=== PATIENT | male | born 1950 | race Caucasian/White ===

== ENCOUNTER 2018-06-28 08:07 | Observation (INO) ==
[~2018-06-28 08:07] MED LIST: CEFAZOLIN 2000MG 2,000 MG/15 ML SYR IV SCH; LR 15ML/HR IV SCH
[2018-06-28] MEDS ORDERED: fentaNYL citrate 100 MCG/2 ML VIAL ONE (11:01)
[2018-06-28] MEDS ORDERED: BACITRACIN INJ 50,000 UNIT VIAL ONE (11:02)
[2018-06-28] MEDS ORDERED: BACITRACIN OINT 0.9 GM PKT ONE (11:02)
[2018-06-28] MEDS ORDERED: MIDAZOLAM HCL 5 MG/ML 1 ML VIAL ONE (11:02)
[2018-06-28] MEDS ORDERED: LIDOCAINE HCL 1% 20 ML VIAL ONE (11:02)
--- NOTE | 2018-06-28 11:25 | History & Physical Bridge Note ---
Date of Service June 28, 2018 History & Physical Bridge Note I have examined the patient, reviewed the History & Physical and in the interval since the performance of the History & Physical I have noted the following changes of clinical significance: He wore an event monitor and has had multiple periods of sinus arrest with pauses of 5 seconds on monitoring. This is consistent with sick sinus syndrome and most likely cause of his symptoms. We are therefore planning pacemaker implantation. I discussed the indications, procedure, risks and alternatives with him and his family, they understand and he agrees to proceed. Consent obtained. I also discussed risks of conscious sedation and he understands and consent obtained.
--- NOTE | 2018-06-28 11:28 | Pre Anesthesia Assessment ---
Date of Service June 28, 2018 Pre Sedation Assessment Vital Signs Temp Pulse Resp BP Pulse Ox 06/28/18 08:50 36.5 C 72 16 138/66 97 Cardiovascular RRR, no murmur, no edema Respiratory normal respiratory effort, lungs clear to auscultation Pre-Sedation Airway Assessment Hx Sleep Apnea: No Hx Difficult Intubation: No Short, Thick Neck: No Thyromental Distance: > or= 3.5 Finger Breadths Mallampati Class: II ASA II NPO Status Date of Last Intake of Fluids: 06/27/18 Date of Last Intake of Solid Food: 06/27/18 Procedure Planning Contraindications for Sedation: none Current Medications Reviewed: Yes Notes The planned sedation has been discussed with the patient. Informed Consent was obtained. I have identified the patient, determined the appropriateness of sedation and have assessed the patient immediately prior to the procedure. All medicine(s) and interventions are by my order.
--- NOTE | 2018-06-28 12:55 | Operative Report ---
Post Operative Report Date of Surgery June 28, 2018 Pre & Post Diagnosis Operation Date: 06/28/18 10:00 Preoperative diagnosis: Symptomatic sinus arrest Postoperative diagnosis: Same Procedure Operation Date: 06/28/18 10:00 Actual Procedures p Pacer with A/V Leads (Dual) - Alfredito Rosenberg MD s Venogram, Unilateral - Alfredito Rosenberg MD Surgeon Alfredito Rosenberg MD Credit Advisor None Estimated Blood Loss 20 Findings Consistent with Post-Op Diagnosis Specimens None Complications none Disposition Accompanied Patient To Recovery: No Disposition: PCU Description of Procedure After obtaining informed consent for the procedure, the patient was brought to the laboratory and prepped and draped in the standard sterile manner. The left prepectoral region was anesthetized with 1% lidocaine local anesthetic and dye was injected the left arm IV site to opacify the left subclavian vein. The subclavian vein was identified and found to be free of obstruction. Left axillary venipuncture was performed by percutaneous technique and a guidewire placed through the left subclavian vein into the superior vena cava. The area was further infiltrated with 1% lidocaine local anesthetic and a 5 cm incision was made parallel to the left clavicle and 2 cm below it and carried down to the anterior pectoralis fascia. A pacemaker pocket was formed by blunt dissection anterior to the pectoralis fascia and a bacitracin-soaked sponge (50, 000 units in 50 cc normal saline solution) was placed in the pocket. An 8 [employer] Medtronic lead introducer was placed over the guidewire into the left subclavian vein, the dilator and guidewire were removed and a bipolar active fixation steroid tipped ventricular lead was advanced through the introducer into the superior vena cava. A guidewire was placed through the introducer and the introducer was stripped from the lead and guidewire. Another 8 [place] Medtronic lead introducer was placed over the guidewire into the left subclavian vein, the dilator and guidewire were removed and a bipolar active fixation steroid tipped atrial lead was advanced through the introducer into the superior vena cava. A guidewire was placed back through the introducer and the introducer was stripped from the lead and guidewire. Using a curved stylette the ventricular lead was advanced through the right ventricular outflow tract into the pulmonary artery and then using a straight stylette was positioned in the right ventricular apex. The screw was extended fixing the lead in position. Pacing and sensing thresholds were evaluated in bipolar configuration and are recorded on the implant data sheet. Using a curved stylette the atrial lead was positioned in the region of the atrial appendage and the screw extended fixing the lead in position. Pacing and sensing thresholds were evaluated in bipolar configuration and are recorded on the implant data sheet. The right ventricular pacing impedance was borderline therefore the pacemaker was connected to the leads and impedance check through the device which was within parameters. Once the leads were in position they were attached to the anterior pectoralis fascia using 2 sutures of 2-0 silk around each lead collar. The bacitracin- soaked sponge was removed from the pocket, hemostasis was obtained, the pacemaker was placed in the pocket with the leads coiled beneath it. The incision was closed with a running double subcutaneous closure of 3-0 Vicryl absorbable suture, followed by running subcuticular skin closure of 4-0 Vicryl absorbable suture. Bacitracin ointment was placed on the incision and a pressure dressing applied. I attest to the content of the Intraoperative Record and any orders documented therein. Any exceptions are noted below.
[2018-06-28] MEDS ORDERED: KETOROLAC TROMETHAMINE 10 MG TABLET PO PRN (12:57)
[2018-06-28] MEDS ORDERED: ACETAMINOPHEN 325 MG TAB PO PRN (12:57)
--- NOTE | 2018-06-28 12:57 | Post Anesthesia Assessment ---
Date of Service June 28, 2018 Post Sedation Assessment Vital Signs Temp Pulse Resp BP Pulse Ox 06/28/18 08:50 36.5 C 72 16 138/66 97 Recovery Score Activity: Moves 4 extremities Respiration: Deep Breath/Cough Oxygen Saturation: > 92% On Room Air Discharge Sedation Level of Care: Fast Track Phase II Post Sedation Plan On clinical assessment, the patient appears to have tolerated the sedation without complications. Patient is recovering as anticipated. Patient will continue to be monitored by nursing and may be discharged when sedation discharge criteria are met per below protocol. Upon Completions of procedure and additional 15 minutes continue every 5 minute vital signs and the P.A.R. score; then discharge to a Phase I or Fast Track to Phase II per the following guidelines: * Discharge Patient to appropriate Phase II area if PAR is 8 or greater or return to pre- procedure baseline. The post - procedure orders will be as directed. * If PAR score is less than 8 or not return to pre-procedure baseline then patient will follow Phase I monitoring till PAR is reached for Phase II. The Phase I may be done in procedure room or may call to secure a Phase I area. * If naloxone or flumazenil are used for reversal, hold in Phase I for continued monitoring from when last reversal dose was given for a minimum of 60 minutes or longer pending the nurse and/or physician discretion of patient condition before discharge to Phase II. Please call the Sedation Physician to re-evaluate and complete post-note for discharge to Phase II area. Do NOT discharge from procedure sedation or Phase 1 until post- sedation evaluation note is complete by procedure /sedation MD Sedation Discharge Instructions to be given to the patient at discharge to home.
[2018-06-28] MEDS ORDERED: METFORMIN HCL 850 MG TAB PO SCH (14:00)
[2018-06-28] MEDS ORDERED: PHARMACY GLYCEMIC MGMT CONSULT PRN (14:12)
[2018-06-28] MEDS ORDERED: DEXTROSE 50% 50 ML SYRINGE IV PRN (14:34)
[2018-06-28] MEDS ORDERED: GLUCOSE 10 TABS/TUBE PO PRN (14:34)
[2018-06-28] MEDS ORDERED: GLUCAGON FOR INJ 1 MG VIAL IM PRN (14:34)
[2018-06-28] MEDS ORDERED: CARBOHYDRATES FOR HYPOGLYCEMIA PO PRN (14:34)
[2018-06-28] MEDS ORDERED: GLUCOSE 40% GEL 15 GM TUBE PO PRN (14:34)
[2018-06-28] MEDS ORDERED: PNEUMOCOCCAL ADMINISTRATION CHARGE ONE (15:00)
[2018-06-28] MEDS ORDERED: PNEUMOCOCCAL POLYSACCHARIDES 25 MCG/0.5 ML VIAL/SYR IM ONE (15:00)
--- NOTE | 2018-06-28 15:04 | Pharmacy Report ---
Glycemic Control Consultation - Date of Service June 28, 2018 - Scope Scope: Glycemic Pharmacist consulted by Dr Rosenberg on 06/28/2018 for glycemic control and to write orders per [facility] inpatient glycemic control protocol - Objective Weight: 107.5 kg Accuchecks BSG (last 24hrs): 06/28/18 06/28/18 08:55 13:30 POC Glucose 144 H 103 H - Recent Pertinent Medications Outpatient Anti-diabetic Regimen: * Metformin 850mg TID * Novolog 40-60 units BID * Tresiba 70-72 units HS * Victoza 1.8 mg daily * A1c = ordered for 06/29 with am labs Risk Factors for Insulin Resistance: * IVF: LR @ 15ml/hr * Recent Surgery: s/p pacemaker placement POD #0 * Diet: Heart healthy - Assessment & Plan Assessment & Plan: ASSESSMENT: * Pt is s/p pacemaker placement POD #0 admitted for observation. * HbA1c ordered for 06/29 with am labs PLAN FOR INPATIENT GLYCEMIC CONTROL: * Holding outpatient oral diabetes medications. * would consider re-starting oral meds tomorrow morning if pt is stable. * Basal insulin * Lantus 50 units SQ tonight. -Will reassess tomorrow am for further dosing * Bolus insulin * NovoLog per scale ACHS or Q6hrs while NPO * Goal Range: Low 110 mg/dL - High 140 mg/dL * Correction Factor: 15 mg/dL/unit * Nutritional / Prandial insulin per carb ratio of 1 unit per 5 grams CHO consumed * Please note that the plan above was derived based on current level of insulin resistance and hospital stress. These recommendations are appropriate for inpatient admission only. Plan of care upon discharge will need to be reassessed to avoid potential outpatient hypo/hyperglycemia. Thank you.
[2018-06-28] MEDS: INSULIN ASPART 100 UNITS/ML 3 ML PEN SC SCH ×2 (16:53→20:55)
[2018-06-28] MEDS: GABAPENTIN 300 MG CAP PO SCH (20:56)
[2018-06-28] MEDS: CARVEDILOL 6.25 MG TAB PO SCH (20:56)
[2018-06-28] MEDS ORDERED: INSULIN GLARGINE SOLOSTAR 100 UNITS/ML 3 ML PEN SC ONE (21:00)
[2018-06-29] MEDS ORDERED: LEVOTHYROXINE SODIUM 137 MCG TABLET PO SCH (06:30)
[2018-06-29 06:41] LABS: Estimated Average Glucose 154 mg/dl
--- NOTE | 2018-06-29 07:10 | XRay Report ---
TWO VIEW CHEST CLINICAL HISTORY: Status post pacemaker implantation. FINDINGS: PA and lateral chest radiographs are obtained. No prior studies are available for compariso n at the time of dictation. A 2-lead cardiac pacemaker has been placed. Leads project over the right atrial appendage and the right ventricle. The heart is top normal for projection, and there is athero sclerotic calcification of the thoracic aorta. The pulmonary vasculature is noncongested. Nonspecific interstitial thickening is likely chronic. Nipple shadows project over the lung bases. No airspace c onsolidation or pleural effusion is identified. There is no pneumothorax. The skeletal structures are osteopenic. Degenerative change and mild hyperkyphosis are noted in the thoracic spine. The bony tho rax appears intact. IMPRESSION: 1. A 2-lead cardiac pacemaker has been placed as detailed above. There is no evidence of congestive f ailure. 2. No pneumothorax is seen post procedure. 3. There is no airspace consolidation or pleural effusion Electronically signed by: Thai Roman M.D. 06/29/2018 7:09 AM
[2018-06-29] MEDS: GABAPENTIN 300 MG CAP PO SCH (08:10)
[2018-06-29] MEDS: CARVEDILOL 6.25 MG TAB PO SCH (08:10)
[2018-06-29] MEDS: INSULIN ASPART 100 UNITS/ML 3 ML PEN SC SCH (08:11)
[2018-06-29] MEDS ORDERED: CALCIUM MAGNESIUM ZINC PO SCH (09:00)
[2018-06-29] MEDS ORDERED: LISINOPRIL 5 MG TAB PO SCH (09:00)
[2018-06-29] MEDS ORDERED: CLOPIDOGREL BISULFATE 75 MG TAB PO SCH (09:00)
[2018-06-29] MEDS ORDERED: CYANOCOBALAMIN 500 MCG TABLET (VITAMIN B-12) PO SCH (09:00)
--- NOTE | 2018-06-29 10:04 | Discharge Summary ---
Date of Service June 29, 2018 Admission HPI Mr. Jordan is a very pleasant 67-year-old gentleman with a history significant for RCA STEMI status post PCI, CAD, hypertension, dyslipidemia, and type 2 diabetes. On 09/09/2015, he developed a jabbing sensation in his left chest and a crushing pain in his left forearm. He was found to have acute RCA STEMI. He underwent PCI with drug-eluting stent. He has had the following studies/procedures: 1. Cardiac catheterization 09/09/2015 at [facility] in [place]: Proximal to mid LAD 20% diffuse. Proximal circumflex 30%. Mid RCA 95%. Mid RCA underwent PCI with 3 x 33 mm Xience drug-eluting stent. EF 45%. Mid inferior hypokinesis. No MR. Torturous right radial artery. Attempts were not made to try and traverse the right radial artery tortuosity and redundancy secondary to emergent procedure. 2. Echo 09/26/2016: Normal LV size and systolic function. EF 55-60%. Inferolateral wall appears hypokinetic. Probable hypokinesis of the inferior wall. Type 1 diastolic dysfunction. Mild left atrial dilation. Sclerotic aortic valve. He follows up today for scheduled cardiology appointment. He denies chest pain , shortness of breath, syncope, palpitations, or worsening edema. He does have intermittent lightheadedness. He states that it can occur at any time and not necessarily related to position change. It lasts for 2 or 3 seconds. It has improved with titration of lisinopril and discontinuation of amlodipine. He also today informed me that he would like to discontinue Plavix. He has chronic but stable swelling in his feet. He continues to do physical therapy 2 days per week and also uses a recumbent bicycle for 45 minutes 2 or 3 days per week. Event monitor was ordered given patient's lightheadedness symptoms. The monitor showed sinus pauses >5 seconds in duration. He was therefore referred for pacemaker implantation. Admission Exam Per Admitting Provider Gen.: No acute distress. Alert and oriented. HEENT: Anicteric sclera. Neck: Thick neck but no appreciable JVD. Cardiac: PMI was nondisplaced. No ventricular heave. Regular, without ectopy. Normal S1-S2. No audible murmurs, rubs, or gallops. Pulmonary: Clear to auscultation bilaterally without wheezes, rales, or rhonchi. Abdomen: Obese. Soft, nontender, nondistended, with normoactive bowel sounds. No bruits noted. Extremities: 2+ radial pulses bilaterally. 2+ posterior tibialis pulses bilaterally. Trace to 1+ bilateral lower extremity edema. No cyanosis. Psychiatric: Affect appears appropriate. Principal Diagnosis Principal Diagnosis Symptomatic sinus arrest Discharge Exam Gen.: No acute distress. Alert and oriented. HEENT: Anicteric sclera. Neck: Thick neck but no appreciable JVD. Cardiac: PMI was nondisplaced. No ventricular heave. Regular, without ectopy. Normal S1-S2. No audible murmurs, rubs, or gallops. Pulmonary: Clear to auscultation bilaterally without wheezes, rales, or rhonchi. Abdomen: Obese. Soft, nontender, nondistended, with normoactive bowel sounds. No bruits noted. Extremities: 2+ radial pulses bilaterally. 2+ posterior tibialis pulses bilaterally. Trace to 1+ bilateral lower extremity edema. No cyanosis. Psychiatric: Affect appears appropriate. Discharge Data Allergies Allergy/AdvReac Type Severity Reaction Status Date / Time none AdvReac Uncoded 06/28/18 09:07 Procedures Performed Operation Date: 06/28/18 10:00 Actual Procedures p Pacer with A/V Leads (Dual) - Alfredito Rosenberg MD s Venogram, Unilateral - Alfredito Rosenberg MD Ordered Studies 06/28/18 07:00 CL Cath Imgs for PACS use only Routine 06/28/18 07:30 EP Lab Images for PACS ONCE Hospital Course (1) Status post placement of cardiac pacemaker: Patient is a 67-year-old male who was experiencing intermittent lightheadedness for which he was ordered an event monitor. The study showed sinus pauses >5 seconds in duration. He subsequently underwent implantation of a dual-chamber pacemaker on 06/28/[address] Rosenberg. CXR following the procedure showed good lead placement and no evidence of pneumothorax. He was deemed stable for discharge on 06/29/18. He will have follow-up in 3 days for incision check and 1 month for device check. Total Time Total Time Spent Total Time Spent (In Minutes): 20 minutes Discharge Plan Discharge Items Patient Disposition: Home - Self-Care Reason For Visit: DCP Discharge Diagnosis: Status post implantation of dual-chamber pacemaker Discharge Goals: Improve disease control Activity: Per 'Additional Instructions' section Non-emergency contact: Primary Care Provider Call non-emergency contact if: you have any medication questions, your pain is not controlled, you have a fever, your wound has increased redness and your wound has increased drainage Follow-up/Referrals: Brett Garcia [Primary Care Provider] - Diet: Carb Consistent or DM2, Heart Healthy and Low Sodium (2gm) Addtl Provider Instructions: ACTIVITY RECOMMENDATIONS: * Do not raise affected arm over head for 2 weeks. SPECIAL CARE INSTRUCTIONS: * If bleeding occurs, apply direct pressure to area for 5 minutes. * Call your doctor if you have severe pain, fever, drainage or bleeding at site. * Keep dressing on and dry for 48 hours then remove. * Keep any scheduled doctor's appointment. * Implant Card - hand held device with website information given. SKIN IRRITATION: * You may experience some redness and/or swelling in the area where radiation was administered. If any skin irritation occurs, please contact your family physician. FOLLOW UP VISIT: 07/02/18 @ 9:15 am for incision check 07/25/18 @ 2:00 pm for device check Prescriptions: Continue metformin 850 mg Tablet 850 mg PO TID RF: 0 insulin aspart U-100 [Novolog U-100 Insulin aspart] 100 unit/mL Solution 40 - 60 unit SUBCUT BID RF: 0 nitroglycerin [Nitrostat] 0.4 mg Tablet, Sublingual 0.4 mg Sublingual PRN (Reason: Chest Pain) RF: 0 liraglutide [Victoza 3-Bear] 0.6 mg/0.1 mL (18 mg/3 mL) Pen Injector 18 mg SUBCUT DAILY RF: 0 insulin degludec [Tresiba FlexTouch U-200] 200 unit/mL (3 mL) Insulin Pen 70 - 72 unit SUBCUT HS RF: 0 levothyroxine 137 mcg Tablet 137 mcg PO DAILY RF: 0 carvedilol 6.25 mg Tablet 6.25 mg PO BID RF: 0 cyanocobalamin (vitamin B-12) [Vitamin B-12] 1,000 mcg Tablet 1,000 mcg PO DAILY RF: 0 aspirin [Aspir-81] 81 mg Tablet,Delayed Release (Dr/Ec) 1 tab PO DAILY RF: 0 gabapentin 300 mg Capsule 300 mg PO BID RF: 0 cholecalciferol (vitamin D3) [Vitamin D3] 1,000 unit Capsule 1,000 unit PO DAILY RF: 0 [id number]-ugmimzefx-fnju 333-133-5 mg Tablet 1 tabs PO DAILY RF: 0 lisinopril 5 mg Tablet 5 mg PO DAILY Qty: 0 RF: 0 Discontinued clopidogrel 75 mg Tablet 75 mg PO DAILY RF: 0 Stand-Alone Forms: [facility]/Other Patient Handouts: Implantation Pacemaker Dc Discharge Orders: Discharge Order (Routine); Ordered 06/29/18 Ordered By: Michell Richardson Admission Data Admit Date/Time: 06/28/18 12:30 Attending Provider: Alfredito Rosenberg Admit Provider: Alfredito Rosenberg Primary Care Provider: Brett Garcia Service: Telemetry Other Interventions: Discharge Summary Assessment (RN) Last Done: 06/29/18 09:49 DC Date/Time DO NOT enter until pt leaves facility: 06/29/18 10:57
--- NOTE | 2018-06-29 14:45 | Cardiology Progress Note ---
Date of Service June 29, 2018 Assessment & Plan (1) Status post placement of cardiac pacemaker: He is feeling well post pacemaker implantation, atrial lead is working well however the ventricular lead has a somewhat elevated threshold compared to implant. This could represent micro-dislodgment, however it is still within the capability of the device but we may want to reposition it at some point. I discussed this with the patient and he is agreeable to going home (which should be safe his atrial lead is working well and he has sinus node dysfunction that are pacing threshold is in the capability of the device in any case), I will see him on Monday and we will check measurements again and if it looks like it should be revised we will arrange that for next week. Subjective He feels well today, he did not sleep very well in the hospital does not have significant discomfort and no shortness of breath or palpitations. No chest discomfort. Physical Exam 2 Vital Signs (Past 24 Hours): Last Vital Signs Temp 36.8 C 06/29/18 09:49 Pulse 64 06/29/18 09:49 Resp 18 06/29/18 09:49 BP 117/66 06/29/18 09:49 Pulse Ox 98 06/29/18 09:49 Physical Exam: Constitutional: Alert, cooperative and in no distress. Pulmonary: Clear to auscultation bilaterally. Cardiac: Regular rhythm with no murmur, gallop or rub. Abdomen: Soft, nontender with normal bowel sounds. Extremities: No edema. Skin: No rash, ecchymoses or petechiae. His pacemaker site is well-healed without erythema, swelling or tenderness. Results & Data Diagnostic Findings Pacemaker: Normal pacemaker function postop, predominantly inhibited Telemetry: Appropriate pacemaker function Chest x-ray: Leads appear to be in good position, the ventricular lead position appears to be the same as at implant on comparison. no pneumothorax. Pacemaker evaluation: The atrial lead is functioning very well, good lead is not performing as well as an implant yesterday. It is still within the capabilities of device but there may be a micro-dislodgment.
== END 2018-06-29 10:57 | disposition home or self-care (01) ==
LOC: ASU 08:07 → 2S 08:07